=== PATIENT | female | born 1985 | race Caucasian/White ===

== ENCOUNTER → 2017-02-04 | Outpatient (CLI) | payer BC | LOC: BMCIMAGING 14:34 | PROVIDERS: ATTEND Family Medicine | DX: N83.201 Unspecified ovarian cyst, right side (principal) ==

== ENCOUNTER → 2017-03-11 | Outpatient (CLI) | payer BC, OTHER | LOC: FIMAGING 15:24 | PROVIDERS: ATTEND Obstetrics & Gynecology | DX: N83.202 Unspecified ovarian cyst, left side (principal); Z97.5 Presence of (intrauterine) contraceptive device ==

== ENCOUNTER 2017-04-29 17:12 | Emergency (ER) | payer OTHER ==
[2017-04-29 17:21] VITALS: RESP 16
[2017-04-29] MEDS ORDERED: KETOROLAC 30 MG/1 ML SDV IVP ONE (17:58)
[2017-04-29] MEDS ORDERED: ONDANSETRON 4 MG/2 ML VIAL IVP ONE (17:59)
--- NOTE | 2017-04-29 17:59 | EDPHY ---
H & P Stated Complaint: Pelvic pain,nausea since January;worse today Time Seen by Provider: 04/29/17 17:49 HPI/ROS: CHIEF COMPLAINT: Lower abdominal pain HISTORY OF PRESENT ILLNESS: 32-year-old female recently diagnosed with endometrioma, being followed by a frame repairer in [place], scheduled to start Lupron tomorrow, scheduled for surgery in May, complaining of 3 days of lower abdominal pain not relieved with Tylenol and Motrin. No nausea or vomiting. No urinary abnormality. No back or flank pain. No flu-like symptoms. No headache. PRIMARY CARE PROVIDER: REVIEW OF SYSTEMS: A ten point review of systems was performed and is negative with the exception of the items mentioned in the HPI PAST MEDICAL & SURGICAL HISTORY: Endometrioma, ovarian cyst. IUD. SOCIAL HISTORY:nonsmoker PHYSICAL EXAM (Prior to examination, patient consented to physical exam, hands were washed and my usual and customary physical exam procedures followed) 1) GENERAL: Well-developed, well-nourished, alert and oriented. Appears uncomfortable 2) HEAD: Normocephalic, atraumatic 3) HEENT: Pupils equal, round, reactive to light bilaterally. Sclera anicteric. Nasopharynx, oropharynx, clear, no lesions. Moist mucous membranes 4) NECK: Full range of motion, no meningeal signs. 5) LUNGS: Clear auscultation bilaterally, no wheezes, no rhonchi, no retractions. 6) HEART: Regular rate and rhythm, no murmur, no heave, no gallop. 7) ABDOMEN: Guarding abdomen, tender to palpation bilateral lower quadrants and suprapubic region., 8) MUSCULOSKELETAL: Moving all extremities, no focal areas of tenderness, no obvious trauma. No peripheral edema or discoloration. 9) BACK: No CVA tenderness,. 10) SKIN: No rash, no petechiae. 11) Psychiatric: Patient is oriented X 3, there is no agitation. DIFFERENTIAL DIAGNOSIS: My differential diagnosis includes, but is not limited to, acute appendicitis, acute cholecystitis, bowel obstruction, acute pancreatitis, ovarian torsion, ectopic , gastritis and urinary tract infection. The patient understands that this diagnosis is provisional and can never be 100% accurate. This is a partial list of diagnoses considered. These considerations are based on history, physical exam, past history and reassessment. - Personal History LMP (Females 10-55): Unknown Current Tetanus Diphtheria and Acellular Pertussis (TDAP): Yes - Medical/Surgical History Other PMH: endometriosis - Social History Smoking Status: Never smoked Constitutional: Initial Vital Signs Temperature (C) 38 C 04/29/17 17:17 Heart Rate 101 H 04/29/17 17:17 Respiratory Rate 16 04/29/17 17:17 Blood Pressure 106/66 04/29/17 17:17 O2 Sat (%) 94 04/29/17 17:17 O2 Delivery Mode Room Air Allergies/Adverse Reactions: No Known Allergies Allergy (Unverified 04/29/17 17:21) Home Medications: Medication Instructions Recorded Levonorgestrel [Mirena] 1 each IY 04/29/17 Medical Decision Making - Diagnostics Imaging Results: Imaging Impressions Pelvic/Renal Ultrasound 04/29/17 17:57 Impression: Large bilateral ovarian endometriomas, significantly larger than March 11, 2017. I discussed results with Aron Andrade PA-C, at 1956 hours. Abdomen Ultrasound 04/29/17 18:01 Impression: Appendix is not visualized. Report telephoned to Sameer Andrade at 1956 hours. Images reviewed by myself ED Course/Re-evaluation: 8:20 p.m.: Re-evaluation, discussed her imaging results showing no evidence of ovarian torsion. She is complaining of continued pain. Will administer Dilaudid re-evaluated 9:26 p.m.: Patient given IV Dilaudid, re-evaluated, pain is controlled this point. She would like to be discharged. She has an appoint with her OBGYN tomorrow that I recommend she keep. She is scheduled to start Lupron tomorrow. I have offered to send her home with prescription for analgesia which he declines. Doubt ectopic . Doubt ovarian torsion.Care of patient under supervision of secondary supervising physician Dr Singer with whom I discussed care. - Data Points Laboratory Results: Laboratory Results 04/29/17 18:10 04/29/17 18:10 04/29/17 04/29/17 04/29/17 20:11 18:10 18:10 WBC 14.10 10^3/uL H 10^3/uL (3.80-9.50) RBC 4.26 10^6/uL 10^6/uL (4.18-5.33) Hgb 13.7 g/dL g/dL (12.6-16.3) Hct 38.7 % % (38.0-47.0) MCV 90.8 fL fL (81.5-99.8) MCH 32.2 pg pg (27.9-34.1) MCHC 35.4 g/dL g/dL (32.4-36.7) RDW 13.2 % % (11.5-15.2) Plt Count 267 10^3/uL 10^3/uL (150-400) MPV 10.4 fL fL (8.7-11.7) Neut % (Auto) 89.2 % H % (39.3-74.2) Lymph % (Auto) 3.1 % L % (15.0-45.0) [place] % (Auto) 7.1 % % (4.5-13.0) Eos % (Auto) 0.1 % L % (0.6-7.6) Baso % (Auto) 0.2 % L % (0.3-1.7) Nucleat RBC Rel Count 0.0 % % (0.0-0.2) Absolute Neuts (auto) 12.57 10^3/uL H 10^3/uL (1.70-6.50) Absolute Lymphs (auto) 0.44 10^3/uL L 10^3/uL (1.00-3.00) Absolute Monos (auto) 1.00 10^3/uL H 10^3/uL (0.30-0.80) Absolute Eos (auto) 0.02 10^3/uL L 10^3/uL (0.03-0.40) Absolute Basos (auto) 0.03 10^3/uL 10^3/uL (0.02-0.10) Absolute Nucleated RBC 0.00 10^3/uL 10^3/uL (0-0.01) Immature Gran % 0.3 % % (0.0-1.1) Immature Gran # 0.04 10^3/uL 10^3/uL (0.00-0.10) Sodium Potassium Chloride Carbon Dioxide Anion Gap BUN Creatinine Estimated GFR Glucose Calcium Beta HCG, Qual NEGATIVE Urine Color CANDELARIA Urine Appearance HAZY Urine pH 6.0 (5.0-7.5) Ur Specific [place] 1.030 (1.002-1.030) Urine Protein 1+ H (NEGATIVE) Urine Ketones TRACE H (NEGATIVE) Urine Blood NEGATIVE (NEGATIVE) Urine Nitrate NEGATIVE (NEGATIVE) Urine Bilirubin NEGATIVE (NEGATIVE) Urine Urobilinogen 2.0 EU H EU (0.2-1.0) Ur Leukocyte Esterase NEGATIVE (NEGATIVE) Urine RBC 25-50 /hpf H /hpf (0-3) Urine WBC 3-5 /hpf H /hpf (0-3) Ur Epithelial Cells TRACE /lpf /lpf (NONE-1+) Urine Bacteria TRACE /hpf H /hpf (NONE SEEN) Urine Mucus 2+ /lpf H /lpf (NONE-1+) Urine Glucose NEGATIVE (NEGATIVE) 04/29/17 18:10 WBC RBC Hgb Hct MCV MCH MCHC RDW Plt Count MPV Neut % (Auto) Lymph % (Auto) [place] % (Auto) Eos % (Auto) Baso % (Auto) Nucleat RBC Rel Count Absolute Neuts (auto) Absolute Lymphs (auto) Absolute Monos (auto) Absolute Eos (auto) Absolute Basos (auto) Absolute Nucleated RBC Immature Gran % Immature Gran # Sodium 137 mEq/L mEq/L (134-144) Potassium 3.7 mEq/L mEq/L (3.5-5.2) Chloride 102 mEq/L mEq/L (97-110) Carbon Dioxide 24 mEq/l mEq/l (22-31) Anion Gap 11 mEq/L mEq/L (8-16) BUN 12 mg/dL mg/dL (7-23) Creatinine 0.9 mg/dL mg/dL (0.6-1.0) Estimated GFR > 60 Glucose 107 mg/dL H mg/dL (70-100) Calcium 9.1 mg/dL mg/dL (8.5-10.4) Beta HCG, Qual Urine Color Urine Appearance Urine pH Ur Specific [place] Urine Protein Urine Ketones Urine Blood Urine Nitrate Urine Bilirubin Urine Urobilinogen Ur Leukocyte Esterase Urine RBC Urine WBC Ur Epithelial Cells Urine Bacteria Urine Mucus Urine Glucose Medications Given: Discontinued Medications Hydromorphone HCl (Dilaudid) 1 mg IVP EDNOW ONE Stop: 04/29/17 20:22 Last Admin: 04/29/17 20:24 Dose: 1 mg Ketorolac Tromethamine (Toradol) 30 mg IVP EDNOW ONE Stop: 04/29/17 17:59 Last Admin: 04/29/17 18:13 Dose: 30 mg Ondansetron HCl (Zofran) 4 mg IVP EDNOW ONE Stop: 04/29/17 18:00 Last Admin: 04/29/17 18:13 Dose: 4 mg Departure - Departure Disposition: Home, Routine, Self-Care Clinical Impression: Endometrioma of ovary Condition: Good Instructions: Acute Abdominal Pain (ED) Additional Instructions: Seek immediate medical attention if you develop new or worsening symptoms, if you develop fevers, chills, inability to tolerate oral intake or any other symptoms that concerns you. Referrals: Ernie Ace MD [Primary Care Provider] - 1 day without fail
[2017-04-29 18:19] LABS: % IMMATURE GRANULYOCYTES 0.3 % (0.0-1.1); ABSOLUTE IMMATURE GRANULOCYTES 0.04 10^3/uL (0.00-0.10); ADD DIFF? NO; ADD MORPH? NO; ADD SCAN? NO; ATYPICAL LYMPHOCYTE FLAG 0 (0-99); FRAGMENT RBC FLAG 0 (0-99); HEMATOCRIT 38.7 % (38.0-47.0); HEMOGLOBIN 13.7 g/dL (12.6-16.3); LEFT SHIFT FLG 0 (0-99); LIPEMIA HEMOLYSIS FLAG 90 (0-99); MEAN CELL HEMOGLOBIN 32.2 pg (27.9-34.1); MEAN CELL HEMOGLOBIN CONCENTR. 35.4 g/dL (32.4-36.7); MEAN CELL VOLUME 90.8 fL (81.5-99.8); MEAN PLATELET VOLUME 10.4 fL (8.7-11.7); PLATELET CLUMPS FLAG 0 (0-99); PLATELET COUNT 267 10^3/uL (150-400); RED BLOOD CELL COUNT 4.26 10^6/uL (4.18-5.33); RED CELL DISTRIBUTION WIDTH 13.2 % (11.5-15.2)
[2017-04-29 18:32] LABS: ANION GAP 11 mEq/L (8-16); CALCIUM 9.1 mg/dL (8.5-10.4); CARBON DIOXIDE 24 mEq/l (22-31); CHLORIDE 102 mEq/L (97-110); CREATININE 0.9 mg/dL (0.6-1.0); GLOMERULAR FILTRATION RATE > 60; GLUCOSE 107 mg/dL (70-100); POTASSIUM 3.7 mEq/L (3.5-5.2); SODIUM 137 mEq/L (134-144)
[2017-04-29 20:21] LABS: BACTERIA TRACE /hpf (NONE SEEN); COLOR AMBER; LEUKOCYTE ESTERASE,URINE NEGATIVE (NEGATIVE); MUCUS 2+ /lpf (NONE-1+); NITRITE,URINE NEGATIVE (NEGATIVE); RBC,URINE 25-50 /hpf (0-3)
[2017-04-29] MEDS ORDERED: HYDROmorphONE/DILAUDID 1 MG/ML INJ IVP ONE (20:21)
[2017-04-29 21:25] VITALS: BP 102/55; PULSE 69; TEMP 98.6; O2SAT 93
== END 2017-04-29 21:44 | disposition home or self-care (01) ==
DX: N80.9 Endometriosis, unspecified (principal)
CPT/HCPCS: 96374; J1170; J1885; J2405

== ENCOUNTER → 2018-11-13 | Outpatient (CLI) | payer OTHER | LOC: FIMAGING 06:52 ==